=== PATIENT | female | born 1945 | race Two or more races ===

== ENCOUNTER 2016-09-21 12:31 | Inpatient (IN) | payer OTHER ==
[~2016-09-21] VITALS: Ht 157.5 cm; Wt 58.1 kg
[~2016-09-21 12:31] MED LIST: DIPH1TAB PO; LISI10TA5 PO; LOVA40TA2 PO; METO-302 PO; NITR0.4T SL
[2016-09-21] MEDS ORDERED: IV SET PRIMARY PUMP SET 1 EA INFUS.SET MC ONE ×2 (13:00→17:47)
[2016-09-21] MEDS ORDERED: IV NS 0.9% 1,000 ML ONE ×2 (13:00→14:47)
[2016-09-21] MEDS ORDERED: ONDANSETRON HCL/PF 4 MG/2 ML VIAL IVP ONE (13:00)
[2016-09-21] MEDS ORDERED: IV NS 0.9% 1,000 ML BAG IV ONE ×2 (13:00→15:00)
[2016-09-21] MEDS ORDERED: ONDANSETRON HCL/PF 4 MG/2 ML VIAL ONE (13:00)
[2016-09-21 13:12] LABS: BASOPHILS % (AUTO) 0.5 % (0.0-2.0); DIFF TOTAL % 100 %; EOSINOPHILS # (AUTO) 0.8 /CMM (0.0-0.7); EOSINOPHILS % (AUTO) 10.6 % (0.0-6.0); HEMATOCRIT 37 % (33-45); HEMOGLOBIN 12.2 g/dL (11.5-14.8); LYMPHOCYTES # (AUTO) 1.5 /CMM (0.8-4.8); LYMPHOCYTES % (AUTO) 21.1 % (20.0-44.0); MEAN CORPUSCULAR HEMOGLOBIN 28 PG (26.0-33.0); MEAN CORPUSCULAR HGB CONC 33 g/dl (31.0-36.0); MEAN CORPUSCULAR VOLUME 85 fL (82-100); MONOCYTES # (AUTO) 0.3 /CMM (0.1-1.30); MONOCYTES % (AUTO) 4.5 % (2.0-12.0); NEUTROPHILS # (AUTO) 4.5 /CMM (1.8-8.9); NEUTROPHILS % (AUTO) 63.3 % (43.0-81.0); PLATELET COUNT (AUTO) 248 /CMM (150-450); WHITE BLOOD COUNT (AUTO) 7.1 K/uL (4.3-11.0)
[2016-09-21 13:25] LABS: BILIRUBIN,DIRECT 0.1 mg/dL (0.0-0.2); BILIRUBIN,TOTAL 0.4 mg/dL (0.2-1.0); CALCIUM, SERUM 9.9 mg/dL (8.5-10.1); CREATININE 1.1 mg/dL (0.6-1.3); INDIRECT BILIRUBIN 0.3 mg/dL (0.0-1.1); POTASSIUM 3.6 mmol/L (3.5-5.1); TOTAL PROTEIN, SERUM 7.2 g/dL (6.4-8.2)
[2016-09-21 13:27] LABS: TROPONIN I 0.061 ng/mL (0.00-0.056)
[2016-09-21 13:28] LABS: INR 0.97 (0.87-1.13); LACTIC ACID 1.1 mmol/L (0.4-2.0); PROTHROMBIN TIME 10.5 SECS (9.5-12.7)
[2016-09-21] MEDS ORDERED: diphenhydrAMINE HCL 50 MG/ML VIAL IV ONE ×2 (14:00→15:00)
[2016-09-21] MEDS ORDERED: METOCLOPRAMIDE HCL 10 MG/2 ML VIAL IV ONE (14:00)
[2016-09-21] MEDS ORDERED: METOCLOPRAMIDE HCL 10 MG/2 ML VIAL ONE (14:05)
[2016-09-21] MEDS ORDERED: diphenhydrAMINE HCL 50 MG/ML VIAL ONE ×2 (14:06→14:47)
[2016-09-21] MEDS ORDERED: [UNRECOGNIZED DRUG - CODE] SL (15:36)
[2016-09-21] MEDS ORDERED: METO25TA6 PO (15:36)
[2016-09-21] MEDS ORDERED: FISH1CAP16 PO (15:36)
[2016-09-21] MEDS ORDERED: ASPI325T2 PO (15:36)
[2016-09-21] MEDS ORDERED: MULT-24 PO (15:36)
[2016-09-21] MEDS ORDERED: CALC1TAB3 PO (15:36)
[2016-09-21] MEDS ORDERED: ESTR10TA VG (15:36)
[2016-09-21] MEDS ORDERED: NIAC1000 PO (15:36)
[2016-09-21 16:56] LABS: KETONES,URINE Trace (NEGATIVE); LEUKOCYTE ESTERASE ,URINE Small (NEGATIVE)
[2016-09-21 16:57] LABS: ADD UA MICROSCOPIC YES
[2016-09-21] MEDS ORDERED: ACETAMINOPHEN 325 MG TABLET PO PRN (17:00)
[2016-09-21] MEDS ORDERED: ZOLPIDEM TARTRATE 5 MG TABLET PO PRN (17:00)
[2016-09-21] MEDS ORDERED: Z GUARD REMEDY 2 OZ OINT TP PRN (17:00)
[2016-09-21] MEDS ORDERED: ONDANSETRON HCL/PF 4 MG/2 ML VIAL IVP PRN (17:00)
[2016-09-21 17:27] LABS: ADD URINE CULTURE NO; RBC,URINE 0-2 /HPF (0-2)
[2016-09-21 17:30] VITALS: BP 134/60
[2016-09-21] MEDS: DIPHENOXYLATE HCL/ATROP SULF 1 UDTAB TABLET PO SCH (17:50)
[2016-09-21] MEDS: IV NS 0.9% 1,000 ML IV PRN (17:52)
[2016-09-21 20:00] VITALS: BP 103/46
[2016-09-21 22:00] VITALS: BP 103/46
[2016-09-22] VITALS: BP 117/68
[2016-09-22 04:00] VITALS: BP 115/61
[2016-09-22 06:44] LABS: BASOPHILS % (AUTO) 0.6 % (0.0-2.0); DIFF TOTAL % 100 %; EOSINOPHILS # (AUTO) 0.6 /CMM (0.0-0.7); EOSINOPHILS % (AUTO) 12.2 % (0.0-6.0); HEMATOCRIT 31 % (33-45); HEMOGLOBIN 10.5 g/dL (11.5-14.8); LYMPHOCYTES # (AUTO) 1.4 /CMM (0.8-4.8); MEAN CORPUSCULAR HEMOGLOBIN 29 PG (26.0-33.0); MEAN CORPUSCULAR HGB CONC 34 g/dl (31.0-36.0); MEAN CORPUSCULAR VOLUME 86 fL (82-100); MONOCYTES # (AUTO) 0.4 /CMM (0.1-1.30); MONOCYTES % (AUTO) 7.1 % (2.0-12.0); NEUTROPHILS # (AUTO) 2.7 /CMM (1.8-8.9); NEUTROPHILS % (AUTO) 53.1 % (43.0-81.0); PLATELET COUNT (AUTO) 159 /CMM (150-450)
[2016-09-22 07:10] LABS: ALBUMIN 3.1 g/dL (3.4-5.0); BILIRUBIN,TOTAL 0.2 mg/dL (0.2-1.0); CALCIUM, SERUM 8.5 mg/dL (8.5-10.1); CREATININE 0.9 mg/dL (0.6-1.3); PHOSPHORUS 3.3 mg/dL (2.5-4.9); THYROID STIMULATING HORMONE 1.052 uIU/mL (0.358-3.74); TOTAL PROTEIN, SERUM 5.9 g/dL (6.4-8.2)
[2016-09-22 08:00] VITALS: BP 118/59
[2016-09-22] MEDS: ASPIRIN 325 MG TABLET PO SCH (08:17)
[2016-09-22] MEDS: MULTIVITAMINS,THERAPEUTIC 1 UDTAB TABLET PO SCH (08:17)
[2016-09-22] MEDS: METOPROLOL TARTRATE 25 MG TABLET PO SCH (08:19)
[2016-09-22] MEDS: LISINOPRIL (10MG) 10 MG TABLET PO SCH (08:19)
[2016-09-22] MEDS: DIPHENOXYLATE HCL/ATROP SULF 1 UDTAB TABLET PO SCH ×3 (08:31→16:24)
[2016-09-22] MEDS: IV NS 0.9% 1,000 ML IV PRN (11:33)
[2016-09-22 16:00] VITALS: BP_SYST 125; BP_DIAS 75; BP_DIAS 77
[2016-09-22 20:21] VITALS: BP 121/69
[2016-09-22 22:00] VITALS: BP 121/69
[2016-09-22] MEDS ORDERED: LOPERAMIDE HCL (2 MG CAP) 2 MG CAPSULE PO ONE (22:24)
[2016-09-22] MEDS: LOPERAMIDE HCL (2 MG CAP) 2 MG CAPSULE PO PRN (22:28)
[2016-09-23 07:44] LABS: BASOPHILS % (AUTO) 0.5 % (0.0-2.0); DIFF TOTAL % 100 %; EOSINOPHILS # (AUTO) 0.8 /CMM (0.0-0.7); EOSINOPHILS % (AUTO) 14.2 % (0.0-6.0); HEMATOCRIT 35 % (33-45); HEMOGLOBIN 11.9 g/dL (11.5-14.8); LYMPHOCYTES # (AUTO) 1.7 /CMM (0.8-4.8); LYMPHOCYTES % (AUTO) 29.6 % (20.0-44.0); MEAN CORPUSCULAR HEMOGLOBIN 29 PG (26.0-33.0); MEAN CORPUSCULAR HGB CONC 34 g/dl (31.0-36.0); MEAN CORPUSCULAR VOLUME 86 fL (82-100); MONOCYTES # (AUTO) 0.4 /CMM (0.1-1.30); MONOCYTES % (AUTO) 6.3 % (2.0-12.0); NEUTROPHILS # (AUTO) 2.8 /CMM (1.8-8.9); NEUTROPHILS % (AUTO) 49.4 % (43.0-81.0); PLATELET COUNT (AUTO) 174 /CMM (150-450); RED BLOOD CELL COUNT(AUTO) 4.09 MIL/uL (4.0-5.2); WHITE BLOOD COUNT (AUTO) 5.7 K/uL (4.3-11.0)
[2016-09-23 08:00] VITALS: BP 141/67
[2016-09-23 08:14] LABS: ALBUMIN 3.5 g/dL (3.4-5.0); BILIRUBIN,TOTAL 0.3 mg/dL (0.2-1.0); CALCIUM, SERUM 9.1 mg/dL (8.5-10.1); CREATININE 0.9 mg/dL (0.6-1.3); PHOSPHORUS 3.7 mg/dL (2.5-4.9); POTASSIUM 3.8 mmol/L (3.5-5.1); TOTAL PROTEIN, SERUM 6.7 g/dL (6.4-8.2)
[2016-09-23] MEDS: DIPHENOXYLATE HCL/ATROP SULF 1 UDTAB TABLET PO SCH ×3 (08:22→17:07)
[2016-09-23] MEDS: MULTIVITAMINS,THERAPEUTIC 1 UDTAB TABLET PO SCH (08:22)
[2016-09-23] MEDS: ASPIRIN 325 MG TABLET PO SCH (08:22)
[2016-09-23] MEDS: METOPROLOL TARTRATE 25 MG TABLET PO SCH (08:26)
[2016-09-23] MEDS: LISINOPRIL (10MG) 10 MG TABLET PO SCH (08:27)
[2016-09-23] MEDS: LOPERAMIDE HCL (2 MG CAP) 2 MG CAPSULE PO PRN ×2 (10:13→23:04)
[2016-09-23] MEDS ORDERED: SECONDARY IV SET 1 EA INFUS.SET MC ONE (11:32)
[2016-09-23] MEDS: Magnesium 1GM/D5W 100ML PREMIX 100 ML IV SCH ×2 (11:38→12:38)
[2016-09-23 16:00] VITALS: BP 157/73
[2016-09-23 20:50] VITALS: BP 125/61
[2016-09-23] MEDS: IV NS 0.9% 1,000 ML IV PRN (21:45)
[2016-09-24 07:03] LABS: CALCIUM, SERUM 8.5 mg/dL (8.5-10.1); CREATININE 0.8 mg/dL (0.6-1.3); POTASSIUM 3.8 mmol/L (3.5-5.1)
[2016-09-24 08:00] VITALS: BP 139/65
[2016-09-24] MEDS: ASPIRIN 325 MG TABLET PO SCH (08:41)
[2016-09-24] MEDS: METOPROLOL TARTRATE 25 MG TABLET PO SCH (08:41)
[2016-09-24] MEDS: LISINOPRIL (10MG) 10 MG TABLET PO SCH (08:41)
[2016-09-24] MEDS: MULTIVITAMINS,THERAPEUTIC 1 UDTAB TABLET PO SCH (08:41)
[2016-09-24] MEDS: DIPHENOXYLATE HCL/ATROP SULF 1 UDTAB TABLET PO SCH ×3 (08:41→18:18)
[2016-09-24] MEDS ORDERED: PANTOPRAZOLE 40 MG TABLET.DR PO SCH (12:30)
[2016-09-24 16:00] VITALS: BP 140/60
== END 2016-09-24 20:30 | disposition home or self-care (01) | DRG 391 ==
LOC: ER 12:35 → TELE 16:20 → MED 09-22 11:54
PROVIDERS: ADMIT Nurse Practitioner Acute Care; ATTEND Nurse Practitioner Acute Care
DX: A09 Infectious gastroenteritis and colitis, unspecified (principal); I21.4 Non-ST elevation (NSTEMI) myocardial infarction; I50.32 Chronic diastolic (congestive) heart failure; I25.10 Atherosclerotic heart disease of native coronary artery without angina pectoris; E86.0 Dehydration; E78.5 Hyperlipidemia, unspecified; Z90.710 Acquired absence of both cervix and uterus; K21.9 Gastro-esophageal reflux disease without esophagitis; Z95.1 Presence of aortocoronary bypass graft; I10 Essential (primary) hypertension; D72.1 Eosinophilia; I25.2 Old myocardial infarction; M51.36 Other intervertebral disc degeneration, lumbar region; E83.42 Hypomagnesemia
CPT/HCPCS: 36415; 76705-TC; 80048-TC; 80053-TC; 80061-TC; 80076-TC; 81000-TC; 82728-TC; 83540-TC; 83605-TC; 83690-TC; 83735-TC; 84100-TC; 84439-TC; 84443-TC; 84484-TC; 85025-TC; 85730-TC; 87040-TC; 87081-TC; 87086-TC; A4606; J1200; J2405; J2765; J3475; J7030; Z7610

== ENCOUNTER 2017-01-16 16:23 | Emergency (ER) | payer OTHER ==
[~2017-01-16] VITALS: Ht 157.5 cm; Wt 54.4 kg
[~2017-01-16 16:23] MED LIST changes: +ASPI325T2 PO; +CALC1TAB3 PO; +ESTR10TA VG; +FISH1CAP16 PO; -METO-302 PO; +METO25TA6 PO; +MULT-24 PO; +NIAC1000 PO; -NITR0.4T SL; +[UNRECOGNIZED DRUG - CODE] SL
--- NOTE | 2017-01-16 16:23 | NUR ---
BIB RA, C/O FEELING SICK SAYING SHE'S HAVING A PANIC ATTACK. GOWNED PT. PLACED ON MONITOR. VSS . AWAITING MD ORDER
--- NOTE | 2017-01-16 16:45 | NUR ---
EKG IN PROGRESS
[2017-01-16] MEDS ORDERED: LORAZEPAM 1 MG TABLET ONE (17:24)
--- NOTE | 2017-01-16 17:25 | NUR ---
STATION SUPERINTENDENT AT BEDSIDE BLOOD SAMPLE COLLECTED
[2017-01-16] MEDS ORDERED: LORAZEPAM 1 MG TABLET PO ONE (17:30)
[2017-01-16 17:42] LABS: BASOPHILS % (AUTO) 0.5 % (0.0-2.0); EOSINOPHILS # (AUTO) 0.6 /CMM (0.0-0.7); EOSINOPHILS % (AUTO) 7.6 % (0.0-6.0); HEMATOCRIT 42 % (33-45); HEMOGLOBIN 13.4 g/dL (11.5-14.8); LYMPHOCYTES # (AUTO) 0.9 /CMM (0.8-4.8); MEAN CORPUSCULAR HEMOGLOBIN 28 PG (26.0-33.0); MEAN CORPUSCULAR HGB CONC 32 g/dl (31.0-36.0); MEAN CORPUSCULAR VOLUME 86 fL (82-100); MONOCYTES # (AUTO) 0.3 /CMM (0.1-1.30); NEUTROPHILS # (AUTO) 6.5 /CMM (1.8-8.9); NEUTROPHILS % (AUTO) 76.9 % (43.0-81.0); PLATELET COUNT (AUTO) 222 /CMM (150-450); RDW COEFFICIENT OF VARIATION 13.2 (11.5-15.0); RED BLOOD CELL COUNT(AUTO) 4.86 MIL/uL (4.0-5.2); WHITE BLOOD COUNT (AUTO) 8.3 K/uL (4.3-11.0)
[2017-01-16 17:44] LABS: CALCIUM, SERUM 9.5 mg/dL (8.5-10.1); CREATININE 1.1 mg/dL (0.6-1.3); POTASSIUM 3.9 mmol/L (3.5-5.1)
[2017-01-16 17:52] LABS: TROPONIN I 0.047 ng/mL (0.00-0.056)
--- NOTE | 2017-01-16 19:25 | NUR ---
URINE SAMPLE COLLECTED SENT TO LAB
--- NOTE | 2017-01-16 19:26 | NUR ---
REPORT GIVEN TO DARWIN FOR CHARY
[2017-01-16 19:37] LABS: APPEARANCE,URINE Clear (CLEAR); BILIRUBIN,URINE Negative (NEGATIVE); BLOOD, URINE Negative Ery/uL (NEGATIVE); COLOR,URINE Yellow (YELLOW); KETONES,URINE 15 (NEGATIVE); LEUKOCYTE ESTERASE ,URINE Small (NEGATIVE); NITRITE, URINE Negative (NEGATIVE); PROTEIN,URINE Negative (NEGATIVE); UGLUCOSE Negative (NEGATIVE); UROBILINOGEN,URINE 0.2 EU/dL (0.2)
[2017-01-16 19:48] LABS: ADD URINE CULTURE YES; BACTERIA,URINE Moderate /HPF (None Seen); RBC,URINE 0-2 /HPF (0-2); SQUAMOUS EPITHELIAL CELL,UR Few /HPF (None Seen)
--- NOTE | 2017-01-16 20:50 | NUR ---
Patient discharged to home in stable condition. Written and verbal after care instructions given. Patient verbalizes understanding of instruction. Patient is ambulatory with steady gait. No further complaints.
[2017-01-16 21:27] VITALS: BP 133/63
== END 2017-01-16 21:28 | disposition home or self-care (01) ==
LOC: ER 16:25
DX: F41.9 Anxiety disorder, unspecified (principal); N39.0 Urinary tract infection, site not specified; I10 Essential (primary) hypertension; Z79.82 Long term (current) use of aspirin; Z95.1 Presence of aortocoronary bypass graft; Z88.8 Allergy status to other drugs, medicaments and biological substances; E78.00 Pure hypercholesterolemia, unspecified
CPT/HCPCS: 36415; 71010; 80048; 81001; 84484; 85025; 87086; 93005; 99285; A4606; Z7610; 81000-TC